=== PATIENT | male | born 1975 | race Caucasian/White ===

== ENCOUNTER → 2021-11-27 14:21 | Outpatient (CLI) | payer OTHER, SELFPAY ==
[2021-11-27 15:59] LABS: COVID19 -Nasal RAPID Negative (Negative)
== END ==
PROVIDERS: Referring Provider Family Medicine Sleep Medicine; Visit Provider Family Medicine Sleep Medicine
DX: Z20.822 Contact with and (suspected) exposure to COVID-19 (principal)
CPT/HCPCS: 87635; C9803

== ENCOUNTER → 2021-11-28 13:31 | Outpatient (CLI) | payer OTHER, SELFPAY ==
--- NOTE | 2021-11-28 | DI.ECHO.S_ITS ---
[facility]---------+ [facility] +---------+ : : [address] : [address] : : : : [id number] : : : : Phone: [phone]---------+ Echocardiogram Report + + :Name: MARCELO ROBLES Study Date: 11/28/2021 Height: 76 in : :[facility] ReadingLocation: Weight: 243 lb : : Gender: Male BSA: 2.4 m2 : :: 1975 Age: 46 yrs BP: 142/89 mmHg: :Reason For Study: CHEST PAIN : :Ordering Physician: ZENIA, : :TANI Performed By: Natacha Glez : :Referring: TANI BARKER : + + Interpretation Summary 1) Normal left ventricular thickness, size, wall motion, and systolic function (EF 55-60%). 2) Normal right ventricular size and function. 3) There is mild aortic regurgitation. 4) No prior Echo available for comparison. Procedure: A two-dimensional transthoracic echocardiogram with color flow and Doppler was performed. The study quality was technically adequate. There is no prior echocardiogram noted for this patient. The patient was in sinus rhythm with heart rates between 61-73 bpm during the exam. Left Ventricle: The left ventricle is normal in size and wall thickness. The ejection fraction is estimated to be 55-60%. Left ventricular systolic function appears normal without focal wall motion abnormalities. Right Ventricle: The right ventricle is normal in size and function. Atria: The left atrial size is normal. Right atrial size is normal. There is no Doppler evidence for an interatrial shunt. Mitral Valve: The mitral valve is normal in structure and function. There is trace mitral regurgitation. Aortic Valve: The aortic valve is trileaflet. The aortic valve opens well. There is no aortic valve stenosis. There is mild aortic regurgitation. Tricuspid Valve: The tricuspid valve is normal in structure and function. There is trace tricuspid regurgitation. Pulmonary artery pressures cannot be estimated because of the lack of a measurable TR jet velocity. Pulmonic Valve: The pulmonic valve leaflets are thin and pliable; valve motion is normal. There is mild pulmonic regurgitation. Great Vessels: The aortic root is normal size. The dimensions of the ascending aorta are normal. The IVC is of normal diameter and collapses greater than 50% with a sniff. This suggests a low right atrial pressure of 3 mm Hg. Pericardium/ Pleura There is no pericardial effusion. There is no pleural effusion. MMode/2D Measurements & Calculations LVIDd: 4.8 cm LVOT diam: 2.2 cm LVIDs: 3.5 cm Ao root diam: 3.5 cm FS: 27.5 % asc Aorta Diam: 3.3 cm IVSd: 0.79 cm Ao Arch Diam (Prox Trans): 3.0 cm LVPWd: 0.81 cm LV chan. diameter/BSA (cm/m^2): 2.0 LV sys. diameter/BSA (cm/m^2): 1.4 LA A2 area: 15.6 cm2 RA long axis: 4.7 cm LA A4 area: 20.3 cm2 RA area: 17.3 cm2 LA length (vol): 5.0 cm RA vol: 53.6 ml LA vol: 53.3 ml RA : 22.3 ml/m2 LA vol index: 22.2 ml/m2 IVC diam: 1.4 cm RVD1 (basal): 3.8 cm TAPSE: 2.0 cm Doppler Measurements & Calculations Ao V2 max: 117.6 cm/sec LVOT Max Kendall: 104.6 cm/sec Ao V2 mean: 77.1 cm/sec LV V1 max P.4 mmHg Ao max P.5 mmHg LV V1 VTI: 22.2 cm Ao mean P.8 mmHg JAQUI(I,D): 3.3 cm2 Ao V2 VTI: 24.7 cm JAQUI(V,D): 3.3 cm2 sev ratio: 0.90 JAQUI indexed to BSA (cm^2/m^2): 1.4 MV E max kendall: 77.0 cm/sec PA V2 max: 93.9 cm/sec MV A max kendall: 50.2 cm/sec PA V2 mean: 66.6 cm/sec MV E/A: 1.5 PA mean P.9 mmHg Med Peak E' Kendall: 10.7 cm/sec PA pr(Accel): 22.5 mmHg E/E' med: 7.2 Lat Peak E' Kendall: 12.4 cm/sec E/E' lat: 6.2 E/e' average: 6.7 MV dec time: 0.24 sec SV([facility]): 81.2 ml Reading Physician:07:14 PM
--- NOTE | 2021-11-28 | DI.NM.S_ITS ---
PROCEDURE: NM EXERCISE TREADMILL NON NUC COMPARISON: None. INDICATIONS: Chest pain, Ventricular premature depolarization FINDINGS: Rest ECG sinus rhythm. Kory protocol 9:46, peak HR 184 bpm (105% peak predicted), max BP 178/98, 10.1 METS, LEE +14%. Stress ECG sinus tachycardia, no ST segment changes, ectopy or arrhythmias. Patient reported lightheadedness at peak exercise and sharp chest pain post exercise. IMPRESSION: No evidence of exercise-induced ischemia, ectopy or arrhythmia by ECG criteria. Slightly reduced exercise capacity. Normal blood pressure response to exercise. Dictated by: Ayana Zhu D.O. on 11/29/2021 at 14:38 Approved by: Ayana Zhu M.D. on 11/29/2021 at 14:43
== END ==
PROVIDERS: Referring Provider Internal Medicine Cardiovascular Disease; Visit Provider Internal Medicine Cardiovascular Disease
DX: I35.0 Nonrheumatic aortic (valve) stenosis (principal); I37.1 Nonrheumatic pulmonary valve insufficiency; R07.9 Chest pain, unspecified; I49.3 Ventricular premature depolarization
CPT/HCPCS: 93017; 93306